=== PATIENT | male | born 1990 | race Hispanic/Latino ===

== ENCOUNTER 2019-03-27 10:18 | Inpatient (IN) | payer OTHER ==
[~2019-03-27] VITALS: Ht 167.6 cm; Wt 93.5 kg
[2019-03-27] MEDS ORDERED: APAP325T4 PO (10:32)
[2019-03-27 10:52] LABS: HEMATOCRIT 45.9 % (42.0-52.0); HEMOGLOBIN 16.1 g/dl (13.5-17.5); MEAN CORPUSCULAR HEMOGLOBIN 29.4 pg (27.0-33.0); MEAN CORPUSCULAR HGB CONC 35.1 g/dl (32.0-36.5); MEAN CORPUSCULAR VOLUME 83.8 fl (80.0-96.0); PLATELET COUNT, AUTOMATED 184 10^3/uL (150-450); RED BLOOD COUNT 5.48 10^6/uL (4.30-6.10); WHITE BLOOD COUNT 9.1 10^3/uL (4.0-10.0)
[2019-03-27 11:15] LABS: AMPHETAMINES LEVEL URINE NEGATIVE (NEGATIVE); BARBITURATES URINE NEGATIVE (NEGATIVE); BENZODIAZEPINES URINE NEGATIVE (NEGATIVE); CANNABINOIDS URINE NEGATIVE (NEGATIVE); COCAINE METABOLITE URINE NEGATIVE (NEGATIVE); METHADONE URINE NEGATIVE (NEGATIVE); OPIATES URINE NEGATIVE (NEGATIVE); PHENCYCLIDINE URINE NEGATIVE (NEGATIVE)
[2019-03-27 11:24] LABS: ACETAMINOPHEN LEVEL < 2.0 UG/ML (10.0-30.0); ALBUMIN 4.5 GM/DL (3.2-5.2); ALT/SGPT 60 U/L (12-78); BILIRUBIN,DIRECT 0.1 MG/DL (0.0-0.2); BILIRUBIN,TOTAL 0.5 MG/DL (0.2-1.0); BLOOD UREA NITROGEN 15 MG/DL (7-18); CALCIUM LEVEL 9.2 MG/DL (8.5-10.1); CARBON DIOXIDE LEVEL 24 MEQ/L (21-32); CHLORIDE LEVEL 107 MEQ/L (98-107); CREATININE FOR GFR 1.12 MG/DL (0.70-1.30); ETHYL ALCOHOL (ETHANOL) < 0.003 % (0.000-0.010); GLOMERULAR FILTRATION RATE > 60.0 (>60); GLUCOSE, FASTING 92 MG/DL (70-100); POTASSIUM SERUM 3.8 MEQ/L (3.5-5.1); SALICYLATE LEVEL < 1.7 MG/DL (5.0-30.0); SODIUM LEVEL 140 MEQ/L (136-145); TOTAL PROTEIN 7.9 GM/DL (6.4-8.2)
[2019-03-27] MEDS ORDERED: MOM 30ML SUSPENSION UDC PO PRN (16:45)
[2019-03-27] MEDS ORDERED: MAALOX 30 ML SUSP *UDC PO PRN (16:45)
[2019-03-27 17:16] VITALS: BP 131/85
[2019-03-27] MEDS: ACETAMINOPHEN TAB 650MG DOSE (2X325MG) PO PRN (18:36)
[2019-03-28 06:21] VITALS: BP 123/83
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
--- NOTE | 2019-03-28 10:27 | HPEPDOC ---
General Date of Admission Mar 27, 2019 at 16:34 Date of Service: Mar 28, 2019 Chief Complaint The patient is a 28-year-old male admitted with a reason for visit of Unspecified Depressive Disorder. Source: Patient, Old records History of Present Illness Mr. Kwan is a 28 years old man admitted to [facility] for depression. He c/o sinus headache and cold-like symptoms. Rest of ROS is negative. Labs and vitals are fine. Low grade fever 100F. Home Medications Scheduled PRN Acetaminophen (Acetaminophen) 325 Mg Tablet, 650 MG PO Q4H PRN for PAIN, (Reported) Allergies Coded Allergies: No Known Allergies (Unverified , 03/27/19) Past Medical History Medical History NOne Surgical History None Family History Significant Family History: No pertinent family hx Social History Alcohol: Denies Drugs: denies A-FIB/CHADSVASC A-FIB History Current/History of A-Fib/PAF?: No Review of Systems Other systems All systems reviewed, negative except for sinus headache Physical Examination General Exam: Positive: Alert, Cooperative, No Acute Distress Eye Exam: Positive: PERRLA, Conjunctiva & lids normal ENT Exam: Positive: Atraumatic, Mucous membr. moist/pink Neck Exam: Positive: Supple; Negative: JVD Chest Exam: Positive: Clear to auscultation, Normal air movement; Negative: Rales, Rhonchi, Wheezing Heart Exam: Positive: Rate Normal, Normal S1, Normal S2; Negative: Murmurs Abdomen Exam: Positive: Normal bowel sounds, Soft; Negative: Tenderness Extremity Exam: Positive: Normal pulses; Negative: Edema Skin Exam: Positive: Nl turgor and temperature; Negative: Rash, Breakdown Neuro Exam: Positive: Normal Speech, Strength at 5/5 X4 ext, Normal Tone Psych Exam: Positive: Mental status NL, Mood NL; Negative: Anxiety Vital Signs Vital Signs Date Time Temp Pulse Resp B/P (MAP) Pulse Ox O2 Delivery O2 Flow Rate FiO2 03/28/19 06:21 100.0 91 16 123/83 (96) 03/27/19 14:19 98 Room Air Laboratory Data Labs 24H Laboratory Tests 2 03/27/19 10:39: Nucleated Red Blood Cells % (auto) 0.0, Anion Gap 9, Glomerular Filtration Rate > 60.0, Calcium Level 9.2, Aspartate Amino Transf (AST/SGOT) 36, Alanine Aminotransferase (ALT/SGPT) 60, Alkaline Phosphatase 63, Total Bilirubin 0.5, Di rect Bilirubin 0.1, Total Protein 7.9, Albumin 4.5, Albumin/Globulin Ratio 1.32, Thyroid Stimulating Hormone (TSH) 1.780, Salicylates Level < 1.7L, Urine Amphetamines Screen NEGATIVE, Urine Benzodiazepines Screen NEGATIVE, Urine Opiates Screen NEGATIVE, Urine Methadone Screen NEGATIVE, Acetaminophen Level < 2.0L, Urine Barbiturates Screen NEGATIVE, Urine Phencyclidine Screen NEGATIVE, Urine Cocaine Metabolite Screen NEGATIVE, Urine Cannabinoids Screen NEGATIVE, Ethyl Alcohol Level < 0.003 CBC/BMP Laboratory Tests 03/27/19 10:39 Red Blood Count 5.48, Mean Corpuscular Volume 83.8, Mean Corpuscular Hemoglobin 29.4, Mean Corpuscular Hemoglobin Concent 35.1, Red Cell Distribution Width 12.0 Assessment/Plan Sinus Headache, Cold-like symptoms, Suspect Viral illness - Supportive care; oral fluid, tylenol prn Plan / VTE VTE Prophylaxis Ordered?: No VTE Exclusion Mechanical Proph: Low Risk for VTE VTE Exclusion Pharmacological: At Low Risk for VTE LUDWIN RANDALL MD Mar 28, 2019 10:27
[2019-03-28] MEDS: ACETAMINOPHEN TAB 650MG DOSE (2X325MG) PO PRN (15:41)
[2019-03-28 16:06] VITALS: BP 134/83
[2019-03-28] MEDS: traZODone 50 MG TAB PO PRN (20:04)
[2019-03-29 06:00] VITALS: BP 115/76
--- NOTE | 2019-03-29 10:09 | MHIPNPDOC ---
[facility] Progress Note Progress Note Inpatient Progress Note Rafi Kwan MRN: N/A Date of : N/A Date of Service: 03/29/2019 History of Present Illness The patient is a 28-year-old man who presents to [facility] from [facility] after a walk-in crisis as he reported having suicidal thoughts with a plan to crash his car. He reports that he has not been feeling well and has been feeling suicidal on off for the past couple months by his report. Additionally, he has felt fairly depressed with signs of anhedonia, increased appetite, feelings of hopelessness and erratic sleep. Interval History The patient is met with today. He had been initially seen for his intake by his primary provider, Dr. Bustos. After meeting with the patient, he describes that he still has difficulty with his low mood, loss of interest and fatigue. He describes that he is open to taking medication as he wished to consider it. He has had no major behavioral problems, has been attending groups and is amenable per nursing staff reports. Review Of Systems General: Denies fever or other constitutional symptoms Cardiovascular: Denies chest pain or palpitations GI: Denies Nausea, vomiting, or bowel changes Respiratory: Denies shortness of breath or cough Neuro: Denies dizziness, tremors Derm: Denies any rashes or pruritus : Denies any dysuria or hesitancy MSK: Denies any muscle tightness or stiffness HEENT: Denies any sore throat or headaches Psychotherapy None on this visit. Vital Signs Reviewed. Mental Status Examination General: Well dressed with good hygiene Speech: Spontaneous and fluid Thought processes: Linear and logical MSK: Smooth and coordinated gait, no signs of tremors or involuntary orofacial movements Thought content: Some hopelessness remains Abstract reasoning, and computation: Intact Description of associations: Intact Description of abnormal or psychotic thoughts: Denies any suicidal or homicidal ideation. Denies any auditory or visual hallucinations. Does not appear to be responding to internal stimuli. Does not appear to be endorsing any bizarre or paranoid ideation. Judgment: fair Insight: fair Orientation: Alert and orientated 3 Cognition: Grossly normal Recent and remote memory: Intact Attention span and concentration: Intact Fund of knowledge: Adequate Mood: "okay" Affect: Mildly dysthymic with a constricted range. Diagnoses Unspecified depressive disorder. Assessment and Plan Unspecified depressive disorder: Start Wellbutrin 150 mg daily. Discussed risks, benefits and potential side effects with patient as well as alternatives such as SSRIs. Chooses this option out of range due to concerns of weight gain with SSRIs. Disposition The patient will need a further admission in order to treat his depression, titrate his medications effectively and plan for safe discharge. Time Spent 20 minutes. Wednesday Vital Signs Vital Signs Date Time Temp Pulse Resp B/P (MAP) Pulse Ox O2 Delivery O2 Flow Rate FiO2 03/29/19 09:45 Room Air 03/29/19 06:00 98.1 84 14 115/76 (89) 03/27/19 14:19 98 Current Medications Current Medications Medications (Trade) Dose Ordered Sig/Kolby Route PRN Reason Start Time Stop Time Status Last Admin Dose Admin Acetaminophen (Tylenol Tab) 650 mg Q6HP PRN PO HEADACHE or DISCOMFORT 03/27/19 16:45 03/28/19 15:41 Al Hydrox/Mg Hydrox/Simethicone (Mylanta) 30 ml Q4HP PRN PO HEARTBURN/INDIGESTION 03/27/19 16:45 Home Med (Med Rec Complete!) ASDIRECTED XX 03/27/19 12:30 03/27/19 12:30 DC Magnesium Hydroxide (Milk Of Magnesia) 30 ml DAILYPRN PRN PO CONSTIPATION 03/27/19 16:45 Trazodone HCl (Desyrel) 50 mg QHSP PRN PO INSOMNIA 03/27/19 16:45 03/28/19 20:04 Allergies Coded Allergies: No Known Allergies (Unverified , 03/27/19) KHARI CORDON DO Mar 29, 2019 10:08
[2019-03-29] MEDS ORDERED: buPROPion **XL** TABLET 150MG (WELLBUTRIN XL) PO ONE (11:45)
[2019-03-29 15:31] VITALS: BP 139/71
[2019-03-29] MEDS: traZODone 50 MG TAB PO PRN (20:09)
[2019-03-30 06:28] VITALS: BP 140/84
[2019-03-30] MEDS ORDERED: buPROPion **XL** TABLET 150MG (WELLBUTRIN XL) PO SCH (09:00)
--- NOTE | 2019-03-30 10:55 | MHIPNPDOC ---
[facility] Progress Note Progress Note DATE OF SERVICE: 03/30/19 HISTORY: Patient is a 28 -year-old , male, who arrived to the ED from [facility] via EMS following a walk-in/crisis visit during which he admitted to having SI with plan, intent, and means to "crash car." The patient reported "I haven't been feeling too well, for a while now." The patient reports feeling suicidal on and off for the last "couple of months" worsening over the last couple of weeks. He reported that the morning of admission, he felt especially depressed and that his suicidal thoughts were very intense, and he feared he would finally act upon them. He is unable to identify and specific stressors or triggers. He reported his work is good, and so is his family and marriage life. Eventually he did report in the ED that he has had health issues which include, "something in my MRI" that was suggestive of his having MS. 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 He denies having any symptoms indicative of MS and that he now has to wait a repeat MRI 1 year after the last one. He agreed that his worry about these medical concerns may be playing a role in his feelings of depression. He admits to anhedonia, increased appetite, depressed mood, feelings of hopelessness, erratic sleep, and SI. VITAL SIGNS: See below. NEW TEST RESULTS: See below. CURRENT MEDICATIONS: See below. MENTAL STATUS EXAMINATION: General Appearance: well groomed, appears stated age, hospital scrubs/clothing Build: overweight Demeanor: average Eye Contact: average Activity: restless Behavior: cooperative Speech: clear, reg/rate,rhythm,volume Mood: less depressed, increased anxiety/restlessness Mood "I feel good today" Affect: appropriate, congruent Thought Process: logical/linear, intact Thought Content (Delusions): denies SI, HI, AVH Thought Content (Other): none reported Thought Content (Aggressive): none reported Perception (Hallucinations): none reported Perception (Other): none reported Cognition (Impairment of): none reported Cognition(Intelligence Est.): average Oriented: Awake, Alert, Oriented times three Insight: fair Judgment: Fair DIAGNOSES: Depression, Unspecified ASSESSMENT:Pt seen today and endorsing increased anxiety and restlessness after starting wellbutrin yesterday and is agreeable to stopping as appears to be causing a lot of anxiety in the pt. Is agreeable to trying zoloft instead for mood and anxiety as unlikely to cause pt a lot of restlessness and anxiety and pt agreeable, risks/benefits discussed. Otherwise, pt states he's doing well and hopeful to go home soon to his and kids. States he's been speaking with his on the phone and that she's very supportive. Deneis SI and states his biggest reason for living is to be there for his kids. Is social in the milieu and attending groups, finding it very beneficial. Denies SI/HI, hallucinations, delusions. Feels safe here. MANAGEMENT PLAN: d/c wellbutrin as is making pt anxious and restless, start zoloft 25mg daily for mood zoloft 25mg daily TIME SPENT: 30 minutes. Vital Signs Vital Signs Date Time Temp Pulse Resp B/P (MAP) Pulse Ox O2 Delivery O2 Flow Rate FiO2 03/30/19 06:28 98.2 80 18 140/84 (102) 03/29/19 09:45 Room Air 03/27/19 14:19 98 Current Medications Current Medications Medications (Trade) Dose Ordered Sig/Kolby Route PRN Reason Start Time Stop Time Status Last Admin Dose Admin Acetaminophen (Tylenol Tab) 650 mg Q6HP PRN PO HEADACHE or DISCOMFORT 03/27/19 16:45 03/28/19 15:41 Al Hydrox/Mg Hydrox/Simethicone (Mylanta) 30 ml Q4HP PRN PO HEARTBURN/INDIGESTION 03/27/19 16:45 Bupropion HCl (Wellbutrin Xl) 150 mg DAILY PO 03/30/19 09:00 03/30/19 08:11 Home Med (Med Rec Complete!) ASDIRECTED XX 03/27/19 12:30 03/27/19 12:30 DC Magnesium Hydroxide (Milk Of Magnesia) 30 ml DAILYPRN PRN PO CONSTIPATION 03/27/19 16:45 Trazodone HCl (Desyrel) 50 mg QHSP PRN PO INSOMNIA 03/27/19 16:45 03/29/19 20:09 Allergies Coded Allergies: No Known Allergies (Unverified , 03/27/19) GORDO ANN DO Mar 30, 2019 10:55 am
[2019-03-30] MEDS ORDERED: SERTRALINE HCL 25 MG TABLET PO ONE (12:00)
[2019-03-30 18:46] VITALS: BP 125/76
[2019-03-30] MEDS: traZODone 50 MG TAB PO PRN (20:00)
[2019-03-31 06:05] VITALS: BP 119/68
[2019-03-31] MEDS ORDERED: TRAZ-252 PO (08:39)
[2019-03-31] MEDS ORDERED: SERT25TA88 PO (08:39)
--- NOTE | 2019-03-31 08:41 | MHDSPDOC ---
[facility] Discharge Summary Discharge Summary DATE OF ADMISSION: Mar 27, 2019 at 4:34 pm DATE OF DISCHARGE: Mar 31, 2019 DISCHARGE DIAGNOSES: Depression, Unspecified REASON FOR ADMISSION: Patient is a 28 -year-old , male, who arrived to the ED from [facility] via EMS following a walk-in/crisis visit during which he admitted to having SI with plan, intent, and means to "crash car." The patient reported "I haven't been feeling too well, for a while now." The patient reports feeling suicidal on and off for the last "couple of months" worsening over the last couple of weeks. He reported that the morning of admission, he felt especially depressed and that his suicidal thoughts were very intense, and he feared he would finally act upon them. He is unable to identify and specific stressors or triggers. He reported his work is good, and so is his family and marriage life. Eventually he did report in the ED that he has had health issues which include, "something in my MRI" that was suggestive of his having MS. 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 He denies having any symptoms indicative of MS and that he now has to wait a repeat MRI 1 year after the last one. He agreed that his worry about these medical concerns may be playing a role in his feelings of depression. He admits to anhedonia, increased appetite, depressed mood, feelings of hopelessness, erratic sleep, and SI. CONSULTANTS INVOLVED: none TREATMENT AND PROGRESS ON THE UNIT : Pt was admitted to [facility], seen for psychiatric assessment and started on wellbutrin xl daily which caused him to feel anxious and restless so it was discontinued and he was started on zoloft 25mg daily for mood which he found beneficial, tolerated well, and denied side effects from. He was provided trazodone 50mg qhs prn insomnia. Pt found his medications beneficial and tolerated them well. He attended groups daily during his stay. His symptoms improved with treatment. Stated he was had good sleep and appetite. On day of discharge he denied depression, anxiety, insomnia, SI/HI, hallucinations, delusions. He was discharged home after Denzel meeting with follow-up at [facility]. He felt safe for discharge DISCHARGE ASSESSMENT: Pt seen today and states he feels "good" and is looking forward to going home today with his Denzel and being with his and kids. He states he no longer feels anxious and restless after wellbutrin xl was discontin ued and is tolerating and finding beneficial the zoloft he started yesterday. He denies side effects from it. States he's been speaking with his on the phone and that she's very supportive. Denies SI and states his biggest reason for living is to be there for his kids. He is social in the milieu and attending groups, finding them very beneficial. Denies depression, anxiety, insomnia, SI/HI, hallucinations, delusions. Feels safe to d/c home with his Denzel today. MENTAL STATUS EXAMINATION ON DISCHARGE: General Appearance: well groomed, appears stated age, hospital scrubs/clothing Build: overweight Demeanor: average Eye Contact: average Activity: average Behavior: cooperative Speech: clear, reg/rate,rhythm,volume Mood: euthymic, full range Mood "good" Affect: appropriate, congruent Thought Process: logical/linear, intact Thought Content (Delusions): denies SI, HI, AVH Thought Content (Other): none reported Thought Content (Aggressive): none reported Perception (Hallucinations): none reported Perception (Other): none reported Cognition (Impairment of): none reported Cognition(Intelligence Est.): average Oriented: Awake, Alert, Oriented times three Insight: good Judgment: good MEDICATIONS ON DISCHARGE: zoloft 25mg daily trazodone 50mg qhs prn insomnia PLAN/FOLLOWUP ARRANGEMENTS: D/c home with Denzel with follow-up at [facility]. The amount of time spent in the coordination of care for this patient was approximately 30 minutes. Vital Signs/I&Os Vital Signs Date Time Temp Pulse Resp B/P (MAP) Pulse Ox O2 Delivery O2 Flow Rate FiO2 03/31/19 06:05 98.8 79 18 119/68 (85) 03/29/19 09:45 Room Air 03/27/19 14:19 98 Medications Scheduled PRN Acetaminophen (Acetaminophen) 325 Mg Tablet, 650 MG PO Q4H PRN for PAIN, (Reported) Allergies Coded Allergies: No Known Allergies (Unverified , 03/27/19) GORDO ANN DO Mar 31, 2019 8:41 am
[2019-03-31] MEDS ORDERED: SERTRALINE HCL 25 MG TABLET PO SCH (09:00)
== END 2019-03-31 11:00 | disposition home or self-care (01) | DRG 881 ==
LOC: M ED 10:18 → M ED INP 16:34 → M PSY 17:10
PROVIDERS: ADMIT Psychiatry & Neurology Addiction Medicine; ATTEND Psychiatry & Neurology Psychiatry
DX: F32.9 Major depressive disorder, single episode, unspecified (principal); B34.9 Viral infection, unspecified; Z79.899 Other long term (current) drug therapy; R51 Headache; Z81.1 Family history of alcohol abuse and dependence; Z62.810 Personal history of physical and sexual abuse in childhood